=== PATIENT | female | born 1995 | race Two or more races ===

== ENCOUNTER 2021-07-12 21:30 | Inpatient (IN) | payer MEDICAID, OTHER ==
[~2021-07-12] VITALS: Ht 162.6 cm; Wt 131.8 kg
[2021-07-12 22:31] LABS: Basophils # (auto) 0.1 10 ^3/uL (0-0.2); Basophils % (auto) 1.3 % (0.0-2.0); Eosinophils # (auto) 0.9 10 ^3/uL (0-0.8); Hematocrit 45.6 % (36.0-46.0); Hemoglobin 14.8 g/dL (12.2-16.2); Lymphocytes # (auto) 2.4 10 ^3/uL (0.4-5.4); Lymphocytes % (auto) 23.9 % (10.0-50.0); Mean Corpuscular Hemoglobin 30.1 pg (28.0-32.0); Mean Corpuscular Hgb Conc. 32.6 g/dL (32.0-36.0); Mean Corpuscular Volume 92.6 fL (80.0-100.0); Monocytes # (auto) 0.6 10 ^3/uL (0-1.3); Monocytes % (auto) 5.8 % (0.0-12.0); Neutrophils # (auto) 5.9 10 ^3/uL (1.6-8.6); Nucleated Red Blood Cells % 0.1 %; Red Blood Cells 4.93 10^6/uL (4.0-5.20); Red Cell Distribution Width 13.6 % (11.8-14.3); White Blood Cell 9.8 10^3/uL (4.4-10.8)
[2021-07-12 22:50] LABS: Albumin 3.2 g/dL (3.4-5.0); BUN/Creatinine Ratio 11.8; Calcium 9.1 mg/dL (8.5-10.1); Potassium 3.8 mmol/L (3.5-5.1)
[2021-07-12 22:52] LABS: Bilirubin, Total 0.4 mg/dL (0.2-1.0)
[2021-07-12 23:53] LABS: Urine Bacteria NONE SEEN /hpf (None Seen); Urine Blood 3+ /uL (Negative); Urine Mucus FEW (None Seen); Urine Specific Gravity 1.029 (1.001-1.035); Urine WBC 5 /hpf (0 - 5)
[2021-07-13] MEDS ORDERED: fentaNYL CITRATE 100 MCG/2 ML VL IV ONE (01:00)
[2021-07-13] MEDS ORDERED: ONDANSETRON HCL 4 MG/2 ML VIAL IV ONE (01:00)
[2021-07-13] MEDS ORDERED: SODIUM CHLORIDE 0.9% 1,000 ML IV ONE (02:45)
[2021-07-13] MEDS ORDERED: NITROGLYCERIN 0.4 MG SL TAB SL PRN (03:15)
[2021-07-13] MEDS ORDERED: MORPHINE SULFATE INJECTION 2 MG/ML SYRG IV PRN (03:15)
[2021-07-13] MEDS: D5W/SOD CHLO 0.9% 1,000 ML IV SCH ×3 (05:05→21:57)
[2021-07-13] MEDS: MORPHINE SULFATE 4 MG/ML SYR/VIAL IV PRN ×2 (05:15→12:33)
[2021-07-13 07:18] LABS: Basophils # (auto) 0.1 10 ^3/uL (0-0.2); Basophils % (auto) 0.9 % (0.0-2.0); Eosinophils # (auto) 0.6 10 ^3/uL (0-0.8); Eosinophils % (auto) 7.1 % (0.0-7.0); Hematocrit 42.2 % (36.0-46.0); Hemoglobin 13.8 g/dL (12.2-16.2); Lymphocytes # (auto) 2.2 10 ^3/uL (0.4-5.4); Lymphocytes % (auto) 28.1 % (10.0-50.0); Mean Corpuscular Hemoglobin 30.3 pg (28.0-32.0); Mean Corpuscular Hgb Conc. 32.6 g/dL (32.0-36.0); Mean Corpuscular Volume 92.8 fL (80.0-100.0); Monocytes # (auto) 0.5 10 ^3/uL (0-1.3); Monocytes % (auto) 6.1 % (0.0-12.0); Neutrophils # (auto) 4.5 10 ^3/uL (1.6-8.6); Neutrophils % (auto) 57.8 % (37.0-80.0); Nucleated Red Blood Cells % 0.1 %; Red Blood Cells 4.55 10^6/uL (4.0-5.20); Red Cell Distribution Width 13.7 % (11.8-14.3); White Blood Cell 7.9 10^3/uL (4.4-10.8)
[2021-07-13 07:28] LABS: Albumin 3.4 g/dL (3.4-5.0); Calcium 8.8 mg/dL (8.5-10.1); Potassium 3.8 mmol/L (3.5-5.1)
[2021-07-13 07:32] LABS: BUN/Creatinine Ratio 11.4; Bilirubin, Total 0.5 mg/dL (0.2-1.0)
[2021-07-13] MEDS ORDERED: METO5TAB2 PO (08:35)
[2021-07-13] MEDS ORDERED: ONDA-144 PO (08:35)
[2021-07-13] MEDS: ONDANSETRON HCL 4 MG/2 ML VIAL IV PRN (12:32)
[2021-07-13 13:16] VITALS: BP 122/67
[2021-07-13 17:00] VITALS: BP 122/75
[2021-07-13 20:00] VITALS: BP 116/63
[2021-07-13 22:00] VITALS: BP 110/63
[2021-07-14 05:00] VITALS: BP 132/85
[2021-07-14] MEDS: ONDANSETRON HCL 4 MG/2 ML VIAL IV PRN ×3 (05:14→17:29)
[2021-07-14] MEDS: MORPHINE SULFATE 4 MG/ML SYR/VIAL IV PRN ×3 (05:14→20:49)
[2021-07-14 08:11] LABS: INR 1.07 (0.9-1.15); Partial Thromboplastin Time 26.5 sec (23.6-33.0)
[2021-07-14 09:23] VITALS: BP 118/73
[2021-07-14] MEDS: D5W/SOD CHLO 0.9% 1,000 ML IV SCH (12:20)
[2021-07-14 14:03] VITALS: BP 124/73
[2021-07-14 16:32] VITALS: BP 141/92
[2021-07-14] MEDS: metroNIDAZOLE 500MG/100ML 100 ML IV SCH (17:30)
[2021-07-14] MEDS: levoFLOXacin 500MG 100 ML IV SCH (19:07)
[2021-07-14 22:47] VITALS: BP 132/76
[2021-07-15] MEDS: metroNIDAZOLE 500MG/100ML 100 ML IV SCH ×4 (00:29→23:38)
[2021-07-15] MEDS: ONDANSETRON HCL 4 MG/2 ML VIAL IV PRN ×3 (01:35→22:30)
[2021-07-15 05:14] VITALS: BP 137/83
[2021-07-15] MEDS: MORPHINE SULFATE 4 MG/ML SYR/VIAL IV PRN ×4 (05:43→22:31)
[2021-07-15 08:00] VITALS: BP 137/83
[2021-07-15] MEDS ORDERED: SUCCINYLCHOLINE CHLORIDE 20 MG/ML 10ML VIAL IV ONE (08:09)
[2021-07-15] MEDS ORDERED: LIDOCAINE W/ EPINEPHRINE 1% 20ML VIAL ONE (08:14)
[2021-07-15] MEDS ORDERED: BUPIVACAINE 0.25% INJ 50ML VIAL ONE (08:14)
[2021-07-15] MEDS ORDERED: fentaNYL CITRATE 100 MCG/2 ML VL ONE (08:16)
[2021-07-15] MEDS ORDERED: MIDAZOLAM HCL 2MG/2ML 2ml VIAL (1mg/ml) ONE (08:16)
[2021-07-15] MEDS ORDERED: PROPOFOL 10 MG/ML 20 ML IV ONE (08:17)
[2021-07-15] MEDS ORDERED: ROCURONIUM 10MG/ML 10ML VIAL IV ONE (08:24)
[2021-07-15] MEDS ORDERED: ceFAZolin 1GM/50ML 150 ML IV ONE (08:24)
[2021-07-15] MEDS: D5W/SOD CHLO 0.9% 1,000 ML IV SCH ×2 (08:50→22:35)
[2021-07-15] MEDS ORDERED: hydrALAZINE HCL 20 MG/ML VL ONE (09:01)
[2021-07-15] MEDS ORDERED: ONDANSETRON HCL 4 MG/2 ML VIAL ONE (09:16)
[2021-07-15] MEDS ORDERED: NEOSTIGMINE 1 MG/ML INJ (10mg/10ML VIAL) ONE (09:49)
[2021-07-15] MEDS ORDERED: GLYCOPYRROLATE 0.2 MG/ML 1ML VIAL ONE (09:50)
[2021-07-15] MEDS ORDERED: HYDROmorphone HCL 2 MG/ML VL ONE (10:13)
[2021-07-15] MEDS ORDERED: HYDROcodone-ACET 5/325MG TAB PO PRN (10:15)
[2021-07-15] MEDS ORDERED: METOCLOPRAMIDE HCL 5MG/ml INJ 2ml VIAL IV PRN (10:15)
[2021-07-15] MEDS: HYDROmorphone HCL 2 MG/ML VL IV PRN ×2 (10:15→10:25)
[2021-07-15] MEDS ORDERED: HYDROmorphone HCL 2 MG/ML VL IV PRN ×2 (10:15)
[2021-07-15] MEDS: levoFLOXacin 500MG 100 ML IV SCH (11:56)
[2021-07-15 11:57] LABS: Basophils # (auto) 0.1 10 ^3/uL (0-0.2); Basophils % (auto) 0.3 % (0.0-2.0); Eosinophils # (auto) 0.3 10 ^3/uL (0-0.8); Eosinophils % (auto) 1.9 % (0.0-7.0); Hematocrit 39.6 % (36.0-46.0); Hemoglobin 13.1 g/dL (12.2-16.2); Lymphocytes # (auto) 2.1 10 ^3/uL (0.4-5.4); Lymphocytes % (auto) 11.7 % (10.0-50.0); Mean Corpuscular Hemoglobin 30.4 pg (28.0-32.0); Mean Corpuscular Volume 92.1 fL (80.0-100.0); Monocytes # (auto) 0.8 10 ^3/uL (0-1.3); Monocytes % (auto) 4.6 % (0.0-12.0); Neutrophils # (auto) 14.6 10 ^3/uL (1.6-8.6); Neutrophils % (auto) 81.5 % (37.0-80.0); Red Cell Distribution Width 13.3 % (11.8-14.3); White Blood Cell 17.9 10^3/uL (4.4-10.8)
[2021-07-15 12:22] LABS: BUN/Creatinine Ratio 8.5; Calcium 8.7 mg/dL (8.5-10.1); Potassium 3.6 mmol/L (3.5-5.1)
[2021-07-15 13:00] VITALS: BP 144/86
[2021-07-15] MEDS ORDERED: HYDR-4833 PO (16:29)
[2021-07-15] MEDS ORDERED: IBUP800T26 PO (16:31)
[2021-07-15] MEDS ORDERED: HYDR-4902 PO (16:31)
[2021-07-15] MEDS ORDERED: DOCU-94 PO (16:31)
[2021-07-15 16:36] VITALS: BP 140/84
[2021-07-15 20:15] VITALS: BP 141/78
[2021-07-15 22:00] VITALS: BP 141/78
[2021-07-16] MEDS: MORPHINE SULFATE 4 MG/ML SYR/VIAL IV PRN (04:21)
[2021-07-16 05:09] VITALS: BP 131/75
[2021-07-16 05:27] LABS: Basophils # (auto) 0 10 ^3/uL (0-0.2); Basophils % (auto) 0.3 % (0.0-2.0); Eosinophils # (auto) 0 10 ^3/uL (0-0.8); Eosinophils % (auto) 0.4 % (0.0-7.0); Hematocrit 37.3 % (36.0-46.0); Hemoglobin 12.5 g/dL (12.2-16.2); Lymphocytes # (auto) 1.3 10 ^3/uL (0.4-5.4); Lymphocytes % (auto) 14.2 % (10.0-50.0); Mean Corpuscular Hemoglobin 30.9 pg (28.0-32.0); Mean Corpuscular Hgb Conc. 33.4 g/dL (32.0-36.0); Mean Corpuscular Volume 92.5 fL (80.0-100.0); Monocytes # (auto) 0.6 10 ^3/uL (0-1.3); Monocytes % (auto) 6.4 % (0.0-12.0); Neutrophils % (auto) 78.7 % (37.0-80.0); Nucleated Red Blood Cells % 0.1 %; Red Blood Cells 4.04 10^6/uL (4.0-5.20); Red Cell Distribution Width 13.8 % (11.8-14.3); White Blood Cell 8.9 10^3/uL (4.4-10.8)
[2021-07-16 05:42] LABS: BUN/Creatinine Ratio 6.9; Calcium 8.3 mg/dL (8.5-10.1); Potassium 3.4 mmol/L (3.5-5.1)
[2021-07-16] MEDS: metroNIDAZOLE 500MG/100ML 100 ML IV SCH (08:53)
[2021-07-16 09:00] VITALS: BP 127/69
[2021-07-16] MEDS: levoFLOXacin 500MG 100 ML IV SCH (10:36)
[2021-07-16] MEDS: D5W/SOD CHLO 0.9% 1,000 ML IV SCH (11:30)
[2021-07-16] MEDS ORDERED: LEVO500T31 PO (12:28)
[2021-07-16 13:00] VITALS: BP 127/79
== END 2021-07-16 13:16 | disposition home or self-care (01) | DRG 263 ==
LOC: ER 21:32 → OBSVTOIN 07-13 03:09 → OVERFLOW 07-13 03:09 → CENTRAL 07-13 08:10
PROVIDERS: ADMIT Hospitalist; ATTEND Hospitalist
PROC: 0FT44ZZ Resection of Gallbladder, Percutaneous Endoscopic Approach (ICD-10-PCS; principal; 2021-07-15 08:20)
DX: K80.10 Calculus of gallbladder with chronic cholecystitis without obstruction (principal); E66.01 Morbid (severe) obesity due to excess calories; Z68.42 Body mass index [BMI] 45.0-49.9, adult; Z20.822 Contact with and (suspected) exposure to COVID-19; K66.0 Peritoneal adhesions (postprocedural) (postinfection); N39.0 Urinary tract infection, site not specified; Z82.49 Family history of ischemic heart disease and other diseases of the circulatory system; Z90.49 Acquired absence of other specified parts of digestive tract
CPT/HCPCS: 36415; 74176; 76705; 78226; 80048; 80053; 81001; 83690; 84702; 85025; 85610; 85730; 86850; 86900; 86901; 87081; 87426; 96361; 96374; 96375; G0378; J0330; J0690; J1956; J2250; J2405; J2704; J3490; J7042

== ENCOUNTER 2024-05-17 07:08 | Emergency (ER) | payer MEDICAID ==
[~2024-05-17] VITALS: Ht 162.6 cm; Wt 128.1 kg
[~2024-05-17 07:08] MED LIST: DOCU-94 PO; HYDR-4902 PO; IBUP-1455 PO; LEVO500T31 PO
[2024-05-17 07:55] VITALS: BP 137/75; PULSE 88; RESP 18; TEMP 98.6; O2SAT 95
[2024-05-17 08:32] LABS: Urine Bacteria None Seen /hpf (None Seen)
[2024-05-17 09:03] LABS: Urine Blood Negative /uL (Negative); Urine Clarity Turbid (Clear); Urine Color Yellow (Yellow); Urine Mucus FEW (None Seen); Urine Protein, UAD TRACE (Negative); Urine Specific Gravity 1.021 (1.001-1.035); Urine Urobilinogen Normal (Negative); Urine WBC 2 /hpf (0 - 5)
[2024-05-19 23:07] LABS: Chlamydia Trachomatis, NAA Negative (Negative); Neisseria gonorrhoeae, NAA Negative (Negative)
== END 2024-05-17 09:07 | disposition home or self-care (01) ==
LOC: ER 07:08
DX: R30.0 Dysuria (principal); R35.0 Frequency of micturition; Z32.02 Encounter for pregnancy test, result negative
CPT/HCPCS: 81001; 81025

== ENCOUNTER 2024-08-23 03:34 | Emergency (ER) | payer MEDICAID ==
[~2024-08-23] VITALS: Ht 162.6 cm; Wt 128.3 kg
[2024-08-23] MEDS ORDERED: FLUC200T PO (04:03)
[2024-08-23] MEDS ORDERED: PROM1SOL4 PO (04:03)
[2024-08-23] MEDS ORDERED: CEFD300C2 PO (04:03)
--- NOTE | 2024-08-23 04:04 | ED.PDOC ---
History of Present Illness HPI Comments 29 year old female presents to the ED with a chief complaint of cough onset 1 week. Patient states she began experiencing cough for the past month that has worsen the past 4 days. Patient also began experiencing nausea, vomiting, fever, confusion, decreased appetite, chest pain, anxiety, vaginal discharge the past 4 days. No other symptoms or modifying factors present at this time. Chief Complaint: Cough Time Seen by MD: 03:54 Primary Care Provider: Billy Grimm Notes: Medications, Allergies Allergies: Coded Allergies: NO KNOWN ALLERGIES (Unverified , 07/12/21) Home Meds Active Scripts Fluconazole (Diflucan) 200 Mg Tab, 1 TAB PO DAILY for 7 Days, #7 TAB Prov:EVER SARABIA MD 08/23/24 Promethazine-Dm (Promethazine Dm 6.25-15 mg/5Ml) 1 Curly Curly, 1 CURLY PO Q6HP PRN for 10 Days, #100 ML Prov:EVER SARABIA MD 08/23/24 Cefdinir (Cefdinir) 300 Mg Cap, 1 CAP PO BID for 7 Days, #14 CAP Prov:EVER SARABIA MD 08/23/24 Levofloxacin (Levaquin) 500 Mg Tab, 500 MG PO DAILY, #7 TAB Prov:ANG CASH MD 07/16/21 Hydrocodone-Acetaminophen (Hydrocodone Bitartrate/AC 5-325 mg) 1 Tab Tab, 1 TAB PO Q6HPRN PRN, #30 TAB Prov:ANG CASH MD 07/15/21 Ibuprofen Micronized (Ibuprofen) 800 Mg Tab, 800 MG PO Q8HPRN PRN, #30 TAB Prov:ANG CASH MD 07/15/21 Docusate Sodium (Colace) 100 Mg Cap, 100 MG PO BID, #60 CAP Prov:ANG CASH MD 07/15/21 Information Source: Patient Mode of Arrival: Ambulatory Severity: Moderate Timing: Months Duration: Since onset Prehospital treatment: None Past Medical History PAST MEDICAL HISTORY: Anxiety Surgical History: Denies all surgeries 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 Hx Family History Family History: Reviewed,noncontributory to illness Social History Smoker: Non-Smoker Alcohol: Denies ETOH Use Drugs: Denies Drug Use Lives In: Home Constitutional: reports: fever; denies: chills, diaphoresis, fatigue, malaise, sweats, weakness, others EENTM: denies: blurred vision, double vision, ear bleeding, ear discharge, ear drainage, ear pain, ear ringing, eye pain, eye redness, hearing loss, mouth pain, mouth swelling, nasal discharge, nose bleeding, nose congestion, nose pain, photophobia, tearing, throat pain, throat swelling, voice changes, others Respiratory: reports: cough; denies: hemoptysis, orthopnea, SOB at rest, shortness of breath, SOB with excertion, stridor, wheezing, others Cardiovascular: reports: chest pain; denies: dizzy spells, diaphoresis, Dyspnea on exertion, edema, irregular heart beat, left arm pain, lightheadedness, palpitations, PND, syncope, others Gastrointestinal: reports: nausea, poor appetite, vomiting; denies: abdomen distended, abdominal pain, blood streaked bowels, constipated, diarrhea, dysphagia, difficulty swallowing, hematemesis, melena, poor fluid intake, rectal bleeding, rectal pain, others Genitourinary: reports: vagina discharge; denies: abnormal vagina bleeding, burning, dyspareunia, dysuria, flank pain, frequency, hematuria, incontinence, pain, , urgency, others Neurological: denies: dizziness, fainting, headache, left sided numbness, left sided weakness, numbness, paresthesia, pre-existing deficit, right sided numbness, right sided weakness, seizure, speech problems, tingling, tremors, weakness, others Musculoskeletal: denies: back pain, gout, joint pain, joint swelling, muscle pain, muscle stiffness, neck pain, others Integumetry: denies: bruises, change in color, change in hair/nails, dryness, laceration, lesions, lumps, rash, wounds, others Allergic/Immunocompromised: denies: Difficulty Healing, Frequent Infections, Hives, Itching, others Hematologic/Lymphatic: denies: anemia, blood clots, easy bleeding, easy bruising, swollen glands, others Endocrine: denies: excessive hunger, excessive sweating, excessive thirst, excessive urination, flushing, intolerance to cold, intolerance to heat, unexplained weight gain, unexplained weight loss, others Psychiatric: reports: anxiety; denies: bipolar disorder, depression, hopeless, panic disorder, schizophrenia, sleepless, suicidal, others All Other Systems: Reviewed and Negative Physical Exam General Appearance: Mild Distress, Normal HEENT: Normal ENT Inspection, Pharynx Normal, TMs Normal Neck: Full Range of Motion, Non-Tender, Normal, Normal Inspection Respiratory: Chest Non-Tender, Lungs Clear, No Accessory Muscle Use, No Respiratory Distress, Normal Breath Sounds Cardiovascular: No Edema, No JVD, No Murmur, No Gallop, Normal Peripheral Pulses, Regular Rate/Rhythm Breast Exam: Deferred Gastrointestinal: No Organomegaly, Non Tender, No Pulsatile Mass, Normal Bowel Sounds, Soft Genitalia: Deferred Pelvic: Deferred Rectal: Deferred Extremities: No calf tenderness, Normal capillary refill, Normal inspection, Normal range of motion, Non-tender, No pedal edema Musculoskeletal : Apperance: Normal Neurologic: Alert, ventilation mechanic II-XII nml as Tested, No Motor Deficits, Normal Affect, Normal Mood, No Sensory Deficits Cerebellar Function: Normal Reflexes: Normal Skin: Dry, Normal Color, Warm Lymphatic: No Adenopathy Was a procedure done? Was a procedure done?: No Differential Dx Considerations may include: Differential diagnosis includes but is not limited to: asthma, pneumonia, congestive heart failure, pleural effusion, empyema, pulmonary embolus, and others X-Ray, Labs, Meds, VS Vital Signs Date Time Temp Pulse Resp B/P (MAP) Pulse Ox O2 Delivery O2 Flow Rate FiO2 08/23/24 03:46 97.7 133 16 128/90 (103) 96 Time of 1ST Reevaluation: 04:24 Reevaluation 1ST: Unchanged Time of 2ND Reevaluation: 05:01 Reevaluation 2ND: Improved Patient Education/Counseling: Diagnosis, Treatment, Prognosis Family Education/Counseling: No Family Present Departure 1 Departure Time of Disposition: 05:01 Impression: Primary Impression: Nausea & vomiting Additional Impression: Upper respiratory infection Disposition: 01 HOME / SELF CARE / HOMELESS Condition: Stable e-Prescriptions Fluconazole (Diflucan) 200 Mg Tab 1 TAB PO DAILY for 7 Days, #7 TAB Prov: EVER SARABIA MD 08/23/24 Promethazine-Dm (Promethazine Dm 6.25-15 mg/5Ml) 1 Curly Curly 1 CURLY PO Q6HP PRN for 10 Days, #100 ML Prov: EVER SARABIA MD 08/23/24 Cefdinir (Cefdinir) 300 Mg Cap 1 CAP PO BID for 7 Days, #14 CAP Prov: EVER SARABIA MD 08/23/24 Discharged With: Self Critical Care Note Critical Care Time?: No Stability Stability form required: No Heart Score Heart Score: Heart Score Response (Comments) Value History Slightly Suspicious 0 EKG N/A 0 Age <45 0 Risk Factors No known risk factors 0 Troponin N/A 0 Total 0 I personally scribed for EVER SARABIA MD ([email or web address]) on 08/23/24 at 04:04. Electronically submitted by Chelsey Ken ([email or web address]). EVER SARABIA MD Aug 23, 2024 04:04
[2024-08-23 05:22] VITALS: BP 128/90; PULSE 133; RESP 16; TEMP 97.7; O2SAT 96
== END 2024-08-23 05:24 | disposition home or self-care (01) ==
LOC: ER 03:34
DX: J06.9 Acute upper respiratory infection, unspecified (principal); R11.2 Nausea with vomiting, unspecified; F41.9 Anxiety disorder, unspecified; Z79.2 Long term (current) use of antibiotics; Z79.899 Other long term (current) drug therapy